=== PATIENT | female | born 1975 | race Caucasian/White ===

== ENCOUNTER 2016-10-28 18:41 | Emergency (ER) | payer OTHER ==
[2016-10-28] MEDS ORDERED: LACTATED RINGERS 1,000 ML ONE (19:20)
[2016-10-28] MEDS ORDERED: ONDANSETRON 4 MG/2ML 2 ML VIAL ONE (19:20)
[2016-10-28 19:43] LABS: URINE BILIRUBIN NEGATIVE (NEGATIVE); URINE BLOOD 2+ (NEGATIVE); URINE GLUCOSE (UA) NEGATIVE (NEGATIVE); URINE LEUKOCYTE ESTERASE NEGATIVE (NEGATIVE); URINE NITRITE NEGATIVE (NEGATIVE); URINE PROTEIN NEGATIVE (NEGATIVE); URINE UROBILINOGEN NORMAL (0-1 mg/dl)
[2016-10-28 19:46] LABS: HCG,QUALITATIVE URINE NEGATIVE; URINE APPEARANCE CLEAR; URINE COLOR YELLOW
[2016-10-28 19:48] LABS: ABSOLUTE NEUTROPHIL COUNT 7.5 K/mm3 (1.8-7.7); BASO # 0.1 K/mm3 (0.0-0.2); BASO % 0.6 % (0.2-1.0); EOS # 0.2 (0.0-0.5); EOS % 1.5 % (0.9-2.9); HEMATOCRIT 46.8 % (37.0-47.0); HEMOGLOBIN 14.7 gm/l (12.0-16.0); IMM NEUT% 0.3 % (0-1); LYMPH # 3.3 (1.0-4.8); LYMPH % 27.8 % (15-45); MEAN CELL VOLUME 91.8 fl (81.0-99.0); MEAN CORPUSCULAR HEMOGLOBIN 28.8 pg (27.0-31.0); MEAN CORPUSCULAR HGB CONC 31.4 g/dl (33.0-37.0); MEAN PLATELET VOLUME 10.2 fl (7.4-10.4); MONO # 0.7 (0.0-0.8); MONO % 5.9 % (4-12); NEUT % 63.9 % (43-75); PLATELET COUNT 423 K/mm3 (130-400); RED CELL DISTRIBUTION WIDTH 12.7 % (11.5-14.5)
[2016-10-28 19:56] LABS: URINE RBC 0-2 /hpf
[2016-10-28 19:57] LABS: URINE BACTERIA 0; URINE EPITHELIAL CELLS 0 /hpf; URINE WBC NEG /hpf
[2016-10-28 20:04] LABS: CALCIUM 9.5 mg/dL (8.6-10.3)
--- NOTE | 2016-10-28 20:23 | CT ---
Exam: CT abdomen and pelvis without contrast COMPARISON: None INDICATION: Left lower quadrant pain concerning for urolithiasis. TECHNIQUE: CT examination of the abdomen and pelvis was obtained without contrast using a renal stone protocol. FINDINGS: There is no hydronephrosis or perinephric stranding. No calculus is identified within either kidney, ureter or bladder. Urinary bladder is unremarkable. Uterus present within normal limits. There is no adnexal mass. The bowel, including the appendix, is unremarkable and there is no bowel obstruction, free air or free intraperitoneal fluid. There is no pelvic lymphadenopathy or fluid collection. Linear high density material within the dependent gallbladder is noted and presumably related to cholelithiasis rather than calcification of the wall. Gallbladder is almost completely contracted. Two subcentimeter low-density lesions within the liver are appreciated, most compatible with cysts Liver is otherwise unremarkable on this noncontrast exam. Spleen is normal in size. Pancreas is within normal limits. There is no adrenal mass. Lung bases are clear. Degenerative disc disease and facet arthropathy is seen within the lower lumbar spine. No worrisome lytic or blastic osseous lesion is identified. IMPRESSION: 1. No urolithiasis or other findings identified to explain left lower quadrant pain. 2. Cholelithiasis versus less likely focal calcification of the gallbladder wall. The gallbladder is almost completely contracted there is no biliary ductal dilation. 3. Subcentimeter hepatic cysts, of no clinical concern. 4. Degenerative changes lower lumbar spine. Report was uploaded to the EMR at 2019 hours 10/28/2016
[2016-10-28] MEDS ORDERED: KETOROLAC TROMETHAMINE 15 MG/ML VIAL ONE (20:36)
== END 2016-10-28 21:05 | disposition home or self-care (01) ==
LOC: ED 18:41
DX: R10.32 Left lower quadrant pain (principal); R11.0 Nausea
CPT/HCPCS: 83690; 81025; 85025; 80048; 81001; 74176; 96375; 99284; 96374; 96361; 99283; J1885; J2405; J7120